=== PATIENT | male | born 1950 | race Caucasian/White ===

== ENCOUNTER → 2016-09-12 | Outpatient (CLI) | payer OTHER ==
--- NOTE | 2016-09-12 16:32 | DX ---
Bilateral Hands 2 Views History: Pain, most prominent in the right thumb. Comparison: None available. Findings: Right: No fractures identified. Alignment is normal. Bone mineralization is normal. No erosions are identified. There is mild osteoarthritis in the first carpometacarpal joint. There is no focal soft t issue swelling or soft tissue calcifications. Left: No fractures identified. Alignment is normal. Bone mineralization is normal. Geographic lucent lesion is present in the triquetrum without romeo erosion. Mild osteoarthritis is present at the fir st carpometacarpal joint. There is no focal soft tissue swelling or soft tissue calcifications. Impression: 1. Mild osteoarthritis at the first carpometacarpal joints. 2. Geographic lucent lesion in the left triquetrum, which could be related to a benign fibrous osseou s lesion or less likely an erosion.
== END ==
LOC: BMCIMAGING 15:39
PROVIDERS: ATTEND Internal Medicine Rheumatology
DX: M79.642 Pain in left hand (principal); M79.641 Pain in right hand; R93.8 Abnormal findings on diagnostic imaging of other specified body structures

== ENCOUNTER → 2018-07-16 | Outpatient (CLI) | payer OTHER, MEDICARE | LOC: FIMAGING 07:23 | PROVIDERS: ATTEND Internal Medicine | DX: Z13.6 Encounter for screening for cardiovascular disorders (principal); Z87.891 Personal history of nicotine dependence ==